=== PATIENT | male | born 1955 | race Caucasian/White ===

== ENCOUNTER 2017-01-31 17:19 | Emergency (ER) | payer OTHER ==
[~2017-01-31] VITALS: Ht 182.8 cm; Wt 86.2 kg
[~2017-01-31 17:19] MED LIST: HYDROCODONE BIT1 T11 PO; INDOCIN50 MG PO; PRAVACHOL80 MG PO
== END 2017-01-31 22:12 | disposition home or self-care (01) ==
LOC: ED 17:19
DX: S01.01XA Laceration without foreign body of scalp, initial encounter (principal); S13.9XXA Sprain of joints and ligaments of unspecified parts of neck, initial encounter; W18.00XA Striking against unspecified object with subsequent fall, initial encounter; Y93.E1 Activity, personal bathing and showering; Y92.9 Unspecified place or not applicable; Y99.9 Unspecified external cause status

== ENCOUNTER → 2018-09-27 | Outpatient (CLI) | payer OTHER ==
[2018-09-27 09:33] LABS: ALBUMIN 3.8 gm/dl (3.1-4.5); ALKALINE PHOSPHATASE 95 U/L (45-117); BUN 18 mg/dl (7-24); CHLORIDE 105 mmol/L (98-107); CHOLESTEROL 190 mg/dL (<200); CREATININE 1.03 mg/dL (0.70-1.30); HDL CHOLESTEROL 33 mg/dl (40-60); SGOT/AST 19 IU/L (3-35); SGPT/ALT 43 U/L (12-78); SODIUM 139 mmol/L (136-145); TOTAL PROTEIN 7.5 gm/dL (6.4-8.2); TRIGLYCERIDES 417 mg/dl (<150)
== END | disposition home or self-care (01) ==
LOC: LAB 08:28
PROVIDERS: Internal Medicine Interventional Cardiology
DX: I25.10 Atherosclerotic heart disease of native coronary artery without angina pectoris (principal); E78.2 Mixed hyperlipidemia; I10 Essential (primary) hypertension

== ENCOUNTER → 2020-11-07 | Outpatient (CLI) | payer MEDICARE ==
[2020-11-07 08:26] LABS: ALKALINE PHOSPHATASE 95 U/L (45-117); BUN 20 mg/dl (7-24); CHLORIDE 106 mmol/L (98-107); CHOLESTEROL 110 mg/dL (<200); CREATININE 1.09 mg/dL (0.70-1.30); LDL CHOLESTEROL 22 mg/dL (9-159); POTASSIUM 3.9 mmol/L (3.5-5.1); SGOT/AST 53 IU/L (3-35); SGPT/ALT 88 U/L (12-78); SODIUM 140 mmol/L (136-145); TOTAL PROTEIN 7.4 gm/dL (6.4-8.2); TRIGLYCERIDES 274 mg/dl (<150)
== END | disposition home or self-care (01) ==
LOC: LAB 07:16
PROVIDERS: ATTEND Internal Medicine Interventional Cardiology
DX: I10 Essential (primary) hypertension (principal); I25.10 Atherosclerotic heart disease of native coronary artery without angina pectoris; E78.2 Mixed hyperlipidemia

== ENCOUNTER → 2021-09-30 | Outpatient (CLI) | payer MEDICARE ==
[~2021-09-30] MED LIST changes: +ADULT LOW DOSE81 MG PO; +CRESTOR40 M1 PO; +LISINOPRIL-HCT1 EACH PO
[2021-09-30 09:59] LABS: BUN 9 mg/dl (7-24); CHLORIDE 109 mmol/L (98-107); CHOLESTEROL 75 mg/dL (<200); CREATININE 0.77 mg/dL (0.70-1.30); POTASSIUM 4.1 mmol/L (3.5-5.1); SGOT/AST 14 IU/L (3-35); SGPT/ALT 22 U/L (12-78); SODIUM 141 mmol/L (136-145); TOTAL PROTEIN 7.4 gm/dL (6.4-8.2); TRIGLYCERIDES 165 mg/dl (<150)
[2021-09-30 10:09] LABS: ALKALINE PHOSPHATASE 118 U/L (45-117); LDL CHOLESTEROL 15 mg/dL (9-159); THYROID STIM HORMONE (HS) 0.761 uIU/ml (0.358-4.75)
== END | disposition home or self-care (01) ==
LOC: LAB 09:01
PROVIDERS: ATTEND Internal Medicine Interventional Cardiology
DX: I11.9 Hypertensive heart disease without heart failure (principal); I25.10 Atherosclerotic heart disease of native coronary artery without angina pectoris; Z95.5 Presence of coronary angioplasty implant and graft; E88.81 Metabolic syndrome and other insulin resistance

== ENCOUNTER → 2022-09-30 | Outpatient (CLI) | payer MEDICARE ==
[2022-09-30 10:13] LABS: ALKALINE PHOSPHATASE 108 U/L (46-116); BUN 12 mg/dl (9-23); CHLORIDE 105 mmol/L (98-107); CHOLESTEROL 74 mg/dL (<200); LDL CHOLESTEROL 18 mg/dL (9-159); POTASSIUM 4.3 mmol/L (3.4-5.1); SGPT/ALT 13 U/L (10-49); THYROID STIM HORMONE (HS) 1.696 uIU/ml (0.550-4.780); TOTAL PROTEIN 6.7 gm/dL (6.0-8.0); TRIGLYCERIDES 159 mg/dl (<150)
== END | disposition home or self-care (01) ==
LOC: LAB 08:11
PROVIDERS: ATTEND Internal Medicine Interventional Cardiology
DX: I25.10 Atherosclerotic heart disease of native coronary artery without angina pectoris (principal); I10 Essential (primary) hypertension; E88.81 Metabolic syndrome and other insulin resistance; E78.2 Mixed hyperlipidemia; Z95.5 Presence of coronary angioplasty implant and graft

== ENCOUNTER → 2023-10-14 | Outpatient (CLI) | payer MEDICARE ==
[2023-10-14 08:06] LABS: ALKALINE PHOSPHATASE 80 U/L (46-116); BUN 17 mg/dl (9-23); CHLORIDE 107 mmol/L (98-107); CHOLESTEROL 92 mg/dL (<200); LDL CHOLESTEROL 27 mg/dL (9-159); POTASSIUM 3.8 mmol/L (3.4-5.1); SGPT/ALT 17 U/L (5-49); TRIGLYCERIDES 186 mg/dl (<150)
== END ==
LOC: LAB 00:48 → CARD 08:30
PROVIDERS: ATTEND Internal Medicine Interventional Cardiology
DX: I11.9 Hypertensive heart disease without heart failure (principal); E78.2 Mixed hyperlipidemia; E88.819 Insulin resistance, unspecified; Z95.5 Presence of coronary angioplasty implant and graft

== ENCOUNTER → 2024-10-28 | Outpatient (CLI) | payer MEDICARE ==
[2024-10-28 08:41] LABS: ALKALINE PHOSPHATASE 79 U/L (46-116); BUN 15 mg/dl (9-23); CHLORIDE 105 mmol/L (98-107); CHOLESTEROL 82 mg/dL (<200); LDL CHOLESTEROL 13 mg/dL (9-159); POTASSIUM 4.2 mmol/L (3.4-5.1); SGPT/ALT 23 U/L (5-49); TRIGLYCERIDES 217 mg/dl (<150)
== END | disposition home or self-care (01) ==
LOC: LAB 07:47 → US 09:00
PROVIDERS: ATTEND Internal Medicine Interventional Cardiology
DX: I25.10 Atherosclerotic heart disease of native coronary artery without angina pectoris (principal); E78.2 Mixed hyperlipidemia; I11.9 Hypertensive heart disease without heart failure; Z79.899 Other long term (current) drug therapy; Z95.5 Presence of coronary angioplasty implant and graft